=== PATIENT | male | born 1960 | race Caucasian/White ===

== ENCOUNTER 2020-12-17 17:22 | Observation (INO) | payer OTHER, SELFPAY ==
[2020-12-17] VITALS (7 sets, daily range): BP systolic 122–169; BP diastolic 71–93; PULSE 67–75; RESP 13–18; TEMP 36–36.8; O2SAT 93–99; BMI 30.7
--- NOTE | ~2020-12-17 | MR_ITS ---
EXAMINATION: MR brain/brain stem wo/w con DATE: 12/18/2020 12:14 INDICATION: Transient ischemic episode with left hemiparesis, left-sided facial droop and slurred spe ech. TECHNIQUE: Magnetic resonance imaging (MRI) of the brain and brainstem was performed without and with 20 mL Multihance intravenous contrast. Sequences included sagittal and axial T1-weighted SE, axial d iffusion-weighted FS SE, axial T2*-weighted GRE, axial T2-weighted FLAIR, and axial T2-weighted FSE. Postcontrast axial and coronal T1-weighted SE was obtained. Apparent diffusion coefficient (ADC) maps were created. COMPARISON: Brain CT and CT angiogram dated 12/17/2020 FINDINGS: There are a few small foci of restricted diffusion with mild increased T2 signal at the right insular cortex, right external capsule and right frontal lobe lopez radiata consistent with acute infarcts. No intracranial hemorrhage or abnormal intracranial mass lesion. There are no intraparenchymal signa l abnormalities seen on the other pulse sequences. The ventricles are symmetric and normal in size. T here are no abnormal extra-axial fluid collections. There is an absent flow void along the petrous an d visualized extracranial portions of the right internal carotid artery but which demonstrates enhanc ement on both the current postcontrast MRI images as well as the prior CT angiogram this be consisten t with slow flow as was also demonstrated on an intervening carotid ultrasound dated 12/18/2020. Flow voids are seen in the more distal intracranial right carotid artery which is nonetheless of smaller c aliber than the contralateral left internal carotid artery. Flow voids are also seen in the basilar, bilateral vertebral as well as and many of the larger branch of the bilateral anterior and middle cer ebral arteries. Partial opacification of a posterior right ethmoid air cell. Mucous retention cyst in the bilateral maxillary sinuses. Visualized orbits and soft tissues are unremarkable. There are no a reas of abnormal enhancement on the post contrast images. IMPRESSION: 1. Several small acute infarcts in the right middle cerebral artery vascular distribution including a t the right insular cortex, external capsule and lopez radiata. 2. Slow flow in the right internal carotid artery related to a high-grade near occlusion stenosis at the carotid bulb seen on both prior carotid CT angiogram and carotid ultrasound. See reports dated and 12/18/2020 respectively for further detail. Reviewed, dictated and finalized at location A. IMPRESSION: 1. Several small acute infarcts in the right middle cerebral artery vascular di stribution including at the right insular cortex, external capsule and lopez r adiata. 2. Slow flow in the right internal carotid artery related to a high-grade near occlusion stenosis at the carotid bulb seen on both prior carotid CT angiogram and carotid ultrasound. See reports dated 12/17/2020 and 12/18/2020 respectively for further detail.
--- NOTE | ~2020-12-17 | US_ITS ---
EXAMINATION: US carotid duplex BI DATE: 12/18/2020 10:15 INDICATION: Transient ischemic episode with left-sided hemiparesis. TECHNIQUE: Grayscale, color Doppler, and pulsed Doppler images of the cervical carotid arteries were obtained. The degree of vessel stenosis is placed in one of the following categories: normal, <50%, 5 0-69%, >=70% but less than near-occlusion, near-occlusion, or total occlusion. Note that percent sten osis relative to normal distal artery lumen diameter is indirectly measured from velocity measurement s as described by Spnecer, et al. Radiology 2003; 229:340-346. COMPARISON: 12/17/2020 FINDINGS: RIGHT: The right common carotid artery (CCA) peak systolic velocity (PSV) is 64 cm/s. There is a large echog enic and shadowing calcific plaque in the right carotid bulb. The right internal carotid artery (ICA) PSV is 82 cm/s proximal to the calcification. The right ICA end-diastolic velocity (EDV) is 17 cm/s proximal to the calcification. The right ICA PSV decreases to approximately 20 cm/s immediately dista l to the calcification and low is nearly indiscernible more distally consistent with a high-grade pablo r occlusion stenosis. Correlation with the prior CT angiogram demonstrates significant asymmetric dec rease in caliber of the more distal right internal carotid artery relative to the left despite simila r sizes to the osseous carotid canals. The external carotid artery (ECA) PSV is 224 cm/s. There is an tegrade flow in the right vertebral artery. LEFT: The left CCA PSV is 92 cm/s. The left ICA PSV is 154 cm/s. The left ICA EDV is 65 cm/s. The left ICA/ CCA PSV ratio is 1.7. Grayscale and color Doppler images yield an estimate of 50-69% diameter reducti on from plaque in the ICA. The ECA PSV is 143 cm/s. There is antegrade flow in the left vertebral art richard. IMPRESSION: 1. High-grade, near occlusion stenosis in the right internal carotid artery. 2. 50-69% stenosis in the left internal carotid artery. Reviewed, dictated and finalized at location A.
--- NOTE | ~2020-12-17 | XR_ITS ---
EXAMINATION: XR chest 1V portable DATE: 12/17/2020 17:48 INDICATION: Transient ischemic episode TECHNIQUE: frontal view of the chest was obtained. COMPARISON: Chest CT dated 09/08/2016 FINDINGS: Elevation of the left hemidiaphragm. No focal airspace opacities, pulmonary edema, pleural effusion o r pneumothorax. The cardiomediastinal silhouette is normal. Calcified right hilar lymph nodes consist ent with old granulomatous disease. IMPRESSION: 1. Elevation of the left hemidiaphragm. No other acute cardiopulmonary disease. Reviewed, dictated and finalized at location A.
--- NOTE | ~2020-12-17 | CT_ITS ---
EXAMINATION: CTA brain carotid DATE: 12/17/2020 18:55 INDICATION: Left-sided facial droop and slurred speech, left arm and left leg ataxia TECHNIQUE: Computed tomographic angiography (CTA) of the head was performed without and with 100 mL O mnipaque-350 intravenous contrast. CTA of the neck was performed with intravenous contrast. The dose- length product was 1850.07 mGy-cm. Maximum intensity projection and volume rendered 3D-reconstruction s were created by the technologist on a separate workstation. Automated exposure control and iterativ e reconstruction technique were employed. COMPARISON: None. FINDINGS: HEAD CTA: There is no intracranial hemorrhage, acute infarction, or abnormal mass lesion. The ventric les are normal. There is no abnormal mass effect or midline shift. The asher-white matter differentiat ion is normal. The basal cisterns are patent. The orbits are normal. There is mild mucosal thickening of the paranasal sinuses. Polyps or mucous retention cysts are noted in the maxillary sinuses. There is no significant stenosis of the basilar artery or posterior cerebral arteries. There is no si gnificant stenosis of the intracranial internal carotid arteries or the anterior or middle cerebral a rteries. The anterior communicating artery and posterior communicating arteries are normal. There is no aneurysm. NECK CTA: The thyroid gland is unremarkable. The submandibular and parotid glands are symmetric. Ther e is no lymphadenopathy. There are no masses identified. The airway is unremarkable. There is moderat e cervical spondylosis. The superior mediastinum is unremarkable. There is 71% stenosis of the proximal right internal carotid artery relative to normal distal artery lumen diameter (NASCET criteria). There is 53% stenosis of the proximal left internal carotid artery relative to normal distal artery lumen diameter. IMPRESSION: 1. No acute intracranial abnormality. Normal head CTA. 2. 71% stenosis of the proximal right internal carotid artery relative to normal distal artery lumen diameter (NASCET criteria). 3. 53% stenosis of the proximal left internal carotid artery relative to normal distal artery lumen d iameter. Reviewed, dictated and finalized at location A. IMPRESSION: 1. No acute intracranial abnormality. Normal head CTA. 2. 71% stenosis of the proximal right internal carotid artery relative to kristina l distal artery lumen diameter (NASCET criteria). 3. 53% stenosis of the proximal left internal carotid artery relative to normal distal artery lumen diameter.
--- NOTE | 2020-12-17 17:25 | PC.NURSE ---
Pt arrived to ED from [facility]. States that he was having stroke like symptoms around noon today and was taken via EMS to [facility]. Pt states he waited for hours and decided to leave. Pt arrived with IV in arm and blood pressure cuff on arm.
--- NOTE | 2020-12-17 17:39 | ECG_ITS ---
Measurements Intervals [place] Rate: 76 P: 38 IA: 161 QRS: -45 QRSD: 173 T: 99 QT: 409 QTc: 461 Interpretive Statements SINUS RHYTHM LEFT AXIS DEVIATION LEFT BUNDLE BRANCH BLOCK BASELINE ARTIFACT- I, II, III, AVR, AVL, AVF, V3-V6 ABNORMAL ECG Electronically Signed On 12-18-2020 7:29:07 CDT by Darren Goode D.O.
[2020-12-17 18:05] LABS: Basophils Percent Auto 0.4 % (0.2-1.2); Eosinophils Absolute Auto 0.1 K/mm3 (0-0.3); Eosinophils Percent Auto 0.8 % (0-4.4); Hematocrit 47.3 % (42.0-52.0); Hemoglobin 15.7 g/dL (14.0-18.0); Immature Granulocyte Absolute 0.03 K/mm3 (0.00-0.031); Immature Granulocyte Percent A 0.3 % (0-0.5); Lymphocytes Absolute Auto 1.81 K/mm3 (0.9-3.2); Lymphocytes Percent Auto 17.9 % (18.3-44.2); Mean Corpuscular HGB Conc 33.2 g/dl (32-36); Mean Corpuscular Hemoglobin 29.3 pg (26-34); Mean Corpuscular Volume 88.2 fl (80-100); Monocytes Absolute Auto 0.5 K/mm3 (0.1-0.6); Neutrophils Absolute Auto 7.6 K/mm3 (1.3-6.7); Neutrophils Percent Auto 75.6 % (45.5-73.1); Platelet Count Result 316 k/mm3 (150-375); Red Blood Count 5.36 M/mm3 (4.6-6.20); Red Cell Distribution Width 13.2 % (11.5-14.5); White Blood Count 10.1 K/mm3 (4.5-10.0)
[2020-12-17 18:16] LABS: INR 0.9; Prothrombin Time 12.3 Seconds (11.1-14.7)
[2020-12-17 18:17] LABS: Partial Thromboplastin Time 29.4 SECONDS (22.3-36.8)
[2020-12-17 18:19] LABS: Anion Gap 13 mmol/L (8-16); Blood Urea Nitrogen 14 mg/dL (9-20); Calcium 10.4 mg/dL (8.4-10.2); Carbon Dioxide 25 mmol/L (22-30); Chloride 99 mmol/L (98-107); Estimated CRCL calculation 131 ml/min; Estimated Glomerular Filt Rate > 60; Glucose 213 mg/dL (65-110); Potassium 4.6 mmol/L (3.4-5.0); Sodium 137 mmol/L (137-145)
[2020-12-17 18:30] LABS: Troponin I < 0.012 ng/mL (0.000-0.034)
--- NOTE | 2020-12-17 18:37 | ED.NEUROSD ---
HPI - Neuro Symptoms/Deficit General Chief Complaint: Neuro Symptoms/Deficit Stated Complaint: Rule out CVA? Time Seen by Provider: 12/17/20 17:25 Source: patient and family Mode of arrival: ambulatory Limitations: no limitations History of Present Illness HPI Narrative: This is 60 year old male smoker who presents for evaluation of stroke symptoms. He states around noon he developed left facial droop, left arm weakness , and left arm weakness with slurred speech. He called EMS and he was taken to [facility] hospital. His symptoms resolved at 15 minutes. He was placed in triage at [facility] . He states he waited for 4 hours so he left there. He states his symptoms have resolved. He denies previous history of TIA. He had a right frontal headache that has since resolved. He denies chest pain, nasuea, vomiting or sob. Related Data Home Medications Medication Instructions Recorded Confirmed No Home Medications 12/17/20 12/17/20 Allergies Allergy/AdvReac Type Severity Reaction Status Date / Time No Known Allergies Allergy Verified 12/17/20 21:59 Review of Systems Review of Systems: All systems reviewed & are unremarkable except as noted in HPI and below PMFSH Past Medical History Medical History (Updated 12/17/20 @ 22:23 by Marilia Pascual MD) Gout Surgical History Surgical History (Updated 12/17/20 @ 18:43 by Debbi Peters MD) No pertinent past surgical history Family History Family History (Updated 12/17/20 @ 22:02 by Nela Shah RN) Mother No problems noted. Father History of blood clots Diabetes mellitus Hypertension Social History Social History Smoking packs per day: 1 Smoking cigarettes per day: 20.0 Years smoked: 40 Smoking pack-years: 40.00 Smoking status: Heavy tobacco smoker Tobacco type: cigarettes Second hand tobacco smoke exposure: Yes Alcohol intake: current Drinks per week: 1 Substance use: never Substance use type: does not use Gender identity (if verbalized by the patient): Male Spiritual care concerns: No Exam Const: General: no acute distress and alert Orientation/consciousness: patient oriented x3 Eyes: Pupils: Equal, round and reactive pupils present EOM: EOMs intact bilaterally Resp: Effort & Inspection: normal respiratory effort and no retractions Auscultation: clear to auscultation bilaterally Cardio: Rate: regular rate Rhythm: regular rhythm Heart sounds: no murmurs GI: GI Palp: Yes Soft to palpation, No Tenderness to palpation present (GI) and No Guarding due to palpation present (GI) Auscultation: normal bowel sounds Skin: General skin exam: normal color Rashes: no rashes Neuro: General: patient oriented x3, moves all extremities, no focal motor deficits and CN's II-XI intact bilaterally Cranial nerves: Yes Nystagmus not present Speech: normal speech Motor exam (neuro): 5/5 motor strength present throughout Sensory Exam: normal sensation Coordination: [id number] test normal and nlab-[id number] test normal Psych: Mental Status: mental status grossly normal Affect: normal affect Course Reevaluation(s) Reevaluation #1: Patient presented with TIA. Care turned over to Dr. Adrian who will dispo patient. Date: 12/17/20 Time: 19:00 Vital Signs Vital signs: Vital Signs Temperature 98.2 F 12/17/20 17:26 Pulse Rate 72 12/17/20 17:26 Respiratory Rate 17 12/17/20 17:26 Blood Pressure 169/93 H 12/17/20 17:26 Pulse Oximetry 97 12/17/20 17:26 Temperature 97.6 F 12/18/20 14:00 Pulse Rate 69 12/18/20 14:00 Respiratory Rate 20 12/18/20 14:00 Blood Pressure 144/83 H 12/18/20 14:00 Pulse Oximetry 97 12/18/20 14:00 MDM - Neuro Symptoms/Deficit Lab Data Attestation: I reviewed the patient's lab results. Result diagrams: 12/18/20 08:39 12/18/20 08:39 Labs: Lab Results 12/17/20 12/17/20 12/17/20 Range/Units 17:58 17:58 17:5
[2020-12-17] MEDS: ASPIRIN 81 MG CHEWABLE TABLET 324 MG PO (20:35)
[2020-12-17] MEDS: NICOTINE (*PBKC) 21 MG PATCH 1 PATCH (20:49)
--- NOTE | 2020-12-17 21:50 | ADMGEN ---
This patient, Anthony Song, was admitted to Medical Room 340-01. Patient/family oriented to hospital policies and general routines including ID bracelet, bed and alarms, visiting hours, pain management, procedures, bathroom and other care routines, personal items, smoking policy, room service/diet, and visiting hours. Information on how to activate the Rapid Response Team has been discussed. Patient/Family are encouraged to report perceived risks to care and to ask questions if they do not understand what they are told or what they should do.
--- NOTE | 2020-12-17 22:07 | PM.IMHP ---
H&P: HPI History of Present Illness Date/Time: 12/17/20 22:07 Chief Complaint: SLURRED SPEECH Narrative: THIS IS A 60-YEAR-OLD MALE WITH PAST MEDICAL HISTORY NON SIGNIFICANT HE SMOKES 1 PACK OF CIGARETTES A DAY THAT COMES TO THE EMERGENCY ROOM AFTER HE HAD AN EPISODE OF LEFT UPPER EXTREMITY WEAKNESS IS LAYING A SPEECH AND DROOPINESS OF THE LEFT FACE EMS WAS CALLED AND ON ROUTE PATIENT RECOVER AT THE TIME OF ARRIVAL TO OUTSIDE HOSPITAL HE WAS BACK TO HIS USUAL HE DECIDED TO GO HOME AND THE LATER ON THOUGHT THAT HE SHOULD BETTER GET INTO HOSPITAL AND HE CAME TO OUR EMERGENCY ROOM. UPON ARRIVAL TO EMERGENCY ROOM PATIENT WITH NO ACUTE FINDINGS HE DENIES ANY CHANGES IN VISION ON NO FOCAL WEAKNESS NO FOCAL SENSORY DEFICIT NO FEVERS NO RIGORS NO CHILLS NO SYNCOPE OR NEAR SYNCOPE NO HEADACHES NO CHANGES IN VISION NO NAUSEA NO VOMITING NO ABDOMINAL PAIN. HE HAS BEEN IN HIS USUAL STATE OF HEALTH UP UNTIL THIS HAPPENED. PRELIMINARY WORKUP WAS SIGNIFICANT FOR CT A OF HEAD AND NECK WITH 70% RIGHT INTERNAL CAROTID STENOSIS AND 53% FOR LEFT INTERNAL CAROTID ARTERY. Review of Systems Review of Systems: LEFT UPPER EXTREMITY WEAKNESS SLURRED SPEECH LEFT FACE DROOPINESS Constitutional: Constitutional: Denies chills, Denies fatigue, Denies fever(s) and Denies weakness Eyes: Eyes: Denies change in vision ENT: Denies dysphagia, Denies vertigo, Denies dizziness, Denies nasal congestion, Denies nasal discharge, Denies nasal obstruction and Denies odynophagia Cardiovascular: Cardiovascular: Denies chest pain at rest, Denies rapid heart rate, Denies irregular heart rhythm, Denies lightheadedness, Denies radiating jaw, neck or arm pain, Denies palpitations, Denies dyspnea, Denies dyspnea on exertion and Denies orthopnea Respiratory: Respiratory: Denies cough Gastrointestinal: Gastrointestinal: Denies diarrhea, Denies nausea and Denies vomiting Genitourinary: Genitourinary: Reports no additional male genitourinary complaints Musculoskeletal: Musculoskeletal: Reports no additional musculoskeletal complaints Integumentary/Breasts: Skin/Breast: Reports system reviewed and no additional complaints, except as docu Neurologic: Reports Abnormal speech present and Reports focal weakness ( LEFT UPPER EXTREMITY) Psychiatric: Psychiatric: Reports no additional psychiatric complaints Endocrine: Endocrine: Reports no additional endocrine complaints Hematologic/Lymphatic: Hematologic/Lymphatic: Reports no additional hematologic/lymphatic complaints Allergic/Immunologic: Allergic/Immunologic: Reports no additional allergic/immunologic complaints [facility] Past Medical History Medical History (Updated 12/17/20 @ 22:23 by Marilia Pascual MD) Gout Surgical History Surgical History (Updated 12/17/20 @ 18:43 by Debbi Peters MD) No pertinent past surgical history Family History Family History (Updated 12/17/20 @ 22:02 by Nela Shah RN) Mother No problems noted. Father History of blood clots Diabetes mellitus Hypertension Social History Social History Smoking packs per day: 1 Smoking cigarettes per day: 20.0 Years smoked: 40 Smoking pack-years: 40.00 Smoking status: Heavy tobacco smoker Tobacco type: cigarettes Second hand tobacco smoke exposure: Yes Alcohol intake: current Drinks per week: 1 Substance use: never Substance use type: does not use Gender identity (if verbalized by the patient): Male Sexual Orientation (if Verbalized by the Patient): Straight or Heterosexual Spiritual care concerns: No Meds Home Medications and Allergies Home Medications Medication Instructions Recorded Confirmed Type No Home Medications 12/17/20 12/17/20 History Allergies Allergy/AdvReac Type Severity Reaction Status Date / Time No Known Allergies Allergy Verified 12/17/20 21:59 Vital Signs Vital Signs - 24 hr 12/17/20 17:26 12/17/20 18:10 12/17/20 19:14 Temperature 98.2 F 96.8
[2020-12-18] VITALS: PULSE 64
[2020-12-18 04:00] VITALS: PULSE 61
[2020-12-18 05:27] VITALS: BP 120/66; PULSE 66; RESP 16; TEMP 36; O2SAT 96
--- NOTE | 2020-12-18 06:00 | ECHO_ITS ---
Patient Info Name: Anthony Song Age: 60 years : 1960 Gender: Male Ht: 71 in Wt: 220 lbs BSA: 2.26 m2 HR: 78 bpm BP: 120 / 66 mmHg Heart Rhythm: Sinus Rhythm Technical Quality: Good Exam Date: 12/18/2020 7:43 AM Exam Location: [facility] Pulmonary Exam Room: 340 Patient Status: Inpatient Admit Date: 12/17/2020 Staff Ordering Physician: Spencer Adrian MD Park Manager: Flory Diaz RDCS Attending Provider: Marilia Pascual MD Referring Physician: Nguyễn TERAN; Exam Type: CA echo doppler w bubble study Study Info Indications - TIA SLURRED SPEECH LEFT SIDE WEAKNESS Complete two-dimensional, color flow and Doppler transthoracic echocardiogram is performed with agitated saline. Contrast/Agitated Saline Contrast/Ag. Saline: Agitated Saline Amount: 20.00 ml Administered By: Tin Pittman RN Existing IV Access: Yes IV Access Condition: patent with no signs of infiltration Summary 1. Left ventricular systolic function is mildly reduced, estimated at 40-45%. 2. Left ventricular chamber dimension is mildly enlarged. 3. Left atrial chamber dimension is mildly enlarged. 4. Suspected patent foramen ovale visualized by color flow and agitated saline imaging. Left Ventricle Left ventricular chamber dimension is mildly enlarged. Left ventricular systolic function is mildly reduced, estimated at 40-45%. Left ventricular septal wall motion is abnormal with septal motion related to bundle branch block. The left ventricular diastolic function is grade I diastolic dysfunction. Right Ventricle Right ventricular chamber dimension is normal. Left Atria Left atrial chamber dimension is mildly enlarged. Right Atria Right atrial chamber dimension is normal. Atrial Septum Suspected patent foramen ovale visualized by color flow and agitated saline imaging. Aortic Valve The aortic valve is normal. Pulmonic Valve The pulmonic valve is normal. There is trace pulmonic regurgitation. Mitral Valve The mitral valve has normal leaflets. Tricuspid Valve The tricuspid valve leaflets are normal. There is trace tricuspid valve regurgitation. Pericardium/Pleural The pericardium appears normal. Aorta The aortic root size at the sinus of Valsalva is normal. Left Ventricular Outflow Tract Name Value Normal LVOT 2D LVOT Diameter 2.2 cm LVOT Doppler LVOT Peak Gradient 5 mmHg LVOT Mean Gradient 3 mmHg LVOT VTI 21 cm LVOT VTI/AV VTI Ratio 1.0 LVOT Stroke Volume 79 ml LVOT CO 17.3 l/min LVOT CI 7.7 l/min/m2 Pulmonic Valve Name Value Normal PV Doppler PV Peak Gr
--- NOTE | 2020-12-18 08:00 | PM.TDS ---
Transfer Discharge Sum: Prov Provider Date of admission: 12/17/20 19:38 Primary care physician: PHYSICIAN NOT ON STAFF Admitting clinician: Marilia Pascual MD DS: Admitting Diagnosis Admitting Diagnosis TIA DS: Discharge Diagnosis Discharge Diagnosis (1) TIA (transient ischemic attack): Code(s): G45.9 - Transient cerebral ischemic attack, unspecified Status: Acute Assessment and Plan: CTA OF HEAD And NECK showed that the patient had a 71% blockage of the right internal carotid artery MRI OF THE BRAIN showed cerebral infarcts ECHOCARDIOGRAM patent foramen ovale carotid duplex ultrasound showed nearly occlusion right internal artery Patient transferred to [facility] for carotid endarterectomy under Dr. Marquez (2) Tobacco dependence: Code(s): F17.200 - Nicotine dependence, unspecified, uncomplicated Status: Acute Assessment and Plan: NICOTINE PATCH NEEDED smoking cessation provided Transfer Discharge Sum: Med Medications Active and Home Medications: Home Medications No Home Medications 12/17/20 [History Confirmed 12/17/20] Transfer Discharge Sum: Hosp Hospital Course Hospital course: Date of service 12/18/20 0800 Anthony Song is a 60 year old male with no known past medical history who presented the emergency room after an episode of left upper arm extremity weakness, slurred speech and droopy left face. Currently patient has no complaints chest pain, shortness of breath, weakness, sweats chills fevers, nausea vomiting, or signs and symptoms of aphasia. NIH score is 0 at this time. Patient did have a CTA that showed he had is 71% occlusion on the right internal carotid artery. Later at the echo followed showed that the patient had a patent foramen ovale with the MRI did show that he had some infarcts. Th carotid duplex ultrasound that the patient had nearly occluded right internal carotid artery. Patient is to be transferred to [facility] for interventional neurology under Dr. Bravo Raymond. patient has also been started on aspirin and Plavix along with a statin. Time Spent with Patient Time attestation: Total time spent providing and/or coordinating transfer services: 66 minutes Exam Const: General: cooperative, healthy appearing, comfortable, no acute distress, well developed, alert, awake and other ( WELL-APPEARING) Nutritional Appearance: average body habitus and well nourished Orientation/consciousness: patient oriented x3 Limitations: no limitations HENMT: Head: normal to inspection, normocephalic and atraumatic Ears: hearing grossly normal bilaterally General nose exam: Normal external nose present Face and sinus: normal facial exam Mouth: Yes Normal oral and palatal mucosa present, Yes lip normal and Yes tongue normal Teeth and gingiva: abnormal tooth and associated gingiva and poor dentition Eyes: General: appearance normal, both eyes and all related structures Alignment and Position: alignment normal Sclera: sclerae normal Pupils: Equal, round and reactive pupils present EOM: EOMs intact bilaterally Neck: Neck: normal visual inspection, full ROM, no lymphadenopathy, trachea midline, supple and no JVD Thyroid: thyroid normal Lymphatic: no lymphadenopathy noted Chest: Chest palpation & inspection: normal inspection of the chest Resp: Effort & Inspection: normal respiratory effort and able to speak in complete sentences Auscultation: clear to auscultation bilaterally Cardio: Jugular venous distension: no JVD Rate: regular rate Rhythm: regular rhythm Heart sounds: S1 normal heart sound present and S2 normal heart sound present Peripheral pulses: Peripheral pulses 2+ throughout GI: Inspection: normal to inspection Auscultation: normal bowel sounds : General: Yes deferred Skin: General skin exam: normal color and no rashes or lesions noted Lesions: no lesions Rashes: no rashes Trauma: no lacerations or abrasions Wound
[2020-12-18] MEDS: ASPIRIN 81 MG CHEWABLE TABLET PO (08:27)
[2020-12-18 08:52] LABS: Hemoglobin 14.9 g/dL (14.0-18.0); Mean Corpuscular HGB Conc 33.1 g/dl (32-36); Mean Corpuscular Hemoglobin 29.4 pg (26-34); Mean Corpuscular Volume 88.9 fl (80-100); Platelet Count Result 277 k/mm3 (150-375); Red Blood Count 5.06 M/mm3 (4.6-6.20); Red Cell Distribution Width 13.2 % (11.5-14.5); White Blood Count 8.3 K/mm3 (4.5-10.0)
[2020-12-18 08:55] LABS: Alanine Aminotransferase 22 U/L (4-50); Albumin Level 4.2 g/dL (3.5-5.1); Alkaline Phosphatase 99 U/L (38-126); Anion Gap 8 mmol/L (8-16); Aspartate Amino Transferase 26 U/L (17-59); Bilirubin,Total 0.7 mg/dL (0.2-1.3); Blood Urea Nitrogen 12 mg/dL (9-20); Calcium 9.2 mg/dL (8.4-10.2); Carbon Dioxide 25 mmol/L (22-30); Chloride 99 mmol/L (98-107); Estimated CRCL calculation 115 ml/min; Estimated Glomerular Filt Rate > 60; Glucose 186 mg/dL (65-110); Potassium 4.4 mmol/L (3.4-5.0); Sodium 132 mmol/L (137-145)
[2020-12-18] MEDS: CLOPIDOGREL BISULFATE 300 MG TABLET PO (13:18)
[2020-12-18] MEDS: ATORVASTATIN 40 MG TABLET PO (13:20)
[2020-12-18 14:00] VITALS: BP 144/83; PULSE 69; RESP 20; TEMP 36.4; O2SAT 97
--- NOTE | 2020-12-18 16:20 | PM.IMPN ---
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 Currently patient has no complaints chest pain, shortness of breath, weakness, sweats chills fevers, nausea vomiting, or signs and symptoms of aphasia. NIH score is 0 at this time. Patient did have a CTA that showed he had is 71% occlusion on the right internal carotid artery. Later at the echo followed showed that the patient had a patent foramen ovale with the MRI did show that he had some infarcts. Th carotid duplex ultrasound that the patient had nearly occluded right internal carotid artery. Patient is to be transferred to [facility] for interventional neurology under Dr. Bravo Raymond. patient has also been started on aspirin and Plavix along with a statin. Review of Systems Review of Systems: All systems reviewed & are unremarkable except as noted in HPI and below Exam Const: General: cooperative, healthy appearing, no acute distress, well developed, alert and awake Nutritional Appearance: well nourished Orientation/consciousness: patient oriented x3 Limitations: no limitations HENMT: Head: normal to inspection Ears: hearing grossly normal bilaterally General nose exam: Normal external nose present Mouth: Yes Normal oral and palatal mucosa present, Yes lip normal and Yes tongue normal Teeth and gingiva: abnormal tooth and associated gingiva and poor dentition Eyes: General: appearance normal, both eyes and all related structures Neck: Neck: normal visual inspection, full ROM, trachea midline and supple Chest: Chest palpation & inspection: normal inspection of the chest Resp: Effort & Inspection: normal respiratory effort and able to speak in complete sentences Auscultation: clear to auscultation bilaterally Cardio: Jugular venous distension: no JVD Rate: regular rate Rhythm: regular rhythm Heart sounds: S1 normal heart sound present and S2 normal heart sound present Peripheral pulses: Peripheral pulses 2+ throughout GI: Inspection: normal to inspection GI Palp: Yes Soft to palpation and No Tenderness to palpation present (GI) Auscultation: normal bowel sounds Skin: General skin exam: normal color and no rashes or lesions noted Lesions: no lesions Rashes: no rashes Trauma: no lacerations or abrasions Wounds: no wounds Hair: normal Nails: normal Neuro: General: patient oriented x3, moves all extremities and Normal light touch and pain sensation Speech: normal speech Gait exam (Neuro): Normal gait present Extrem: General: normal to inspection Right upper extremity: normal to inspection Left upper extremity: normal to inspection Right lower extremity: normal to inspection Left lower extremity: normal to inspection Psych: Appearance: grossly normal Objective Data Vital Signs Vital Signs: Vital Signs - 24 hr 12/17/20 17:26 12/17/20 18:10 12/17/20 19:14 Temperature 36.8 C 36.0 C L Pulse Rate 72 72 70 Respiratory Rate 17 16 18 Blood Pressure 169/93 H 153/87 H 122/79 Pulse Oximetry 97 94 93 12/17/20 20:38 12/17/20 21:46 12/17/20 21:57 Temperature 36.6 C 36.8 C 36.0 C L Pulse Rate 67 71 69 Respiratory Rate 13 16
--- NOTE | 2020-12-18 18:04 | PC.NURSE ---
Report called to Lester KERR at [facility] [phone].
== END 2020-12-18 19:20 | disposition short-term general hospital (02) ==
LOC: ANHED 18:24 → ANH3MED 20:58
PROVIDERS: Nurse Practitioner; Admitting Provider Internal Medicine; Emergency Provider General Practice; Visit Provider Internal Medicine
DX: I63.9 Cerebral infarction, unspecified (principal); I65.23 Occlusion and stenosis of bilateral carotid arteries; G81.94 Hemiplegia, unspecified affecting left nondominant side; R47.81 Slurred speech; R29.810 Facial weakness; F17.210 Nicotine dependence, cigarettes, uncomplicated
CPT/HCPCS: 36415; 70496; 70498; 70553; 71045; 80048; 80053; 84484; 85025; 85027; 85610; 85730; 93005; 93306; 93880; 96375; 99285; A9270; A9577; G0378; Q9967